=== PATIENT | male | born 1975 ===

== ENCOUNTER 2018-12-21 14:14 | Emergency (ER) | payer OTHER ==
[2018-12-21 15:05] VITALS: BMI 27.4
[2018-12-21 15:07] VITALS: RESP 18; TEMP 98.1
[2018-12-21] MEDS ORDERED: Lidocaine 1% Inj (20ml) IJ STA (15:51)
[2018-12-21] MEDS ORDERED: Tmp-Smz 800 mg-160 mg DS Tab PO STA (15:51)
--- NOTE | 2018-12-21 15:55 | ED PDOC ---
Arrival/HPI - General Chief Complaint: Abnormal Skin Integrity Time Seen by Provider: 12/21/18 15:36 Historian: Patient - History of Present Illness Narrative History of Present Illness (Text): 12/21/18 15:52 42 y/o male, no significant pmh, nkda, c/o rt. anterior thigh lump with pain x 1 week. Pt. stated that it was a small lesion, been growing and pain, no fever or chills, no night sweat, no numbness or tingling, no other medical or psychological complaints. Past Medical History - Provider Review Nursing Documentation Reviewed: Yes - Infectious Disease Hx of Infectious Diseases: None - Psychiatric Hx Substance Use: No Family/Social History - Physician Review Nursing Documentation Reviewed: Yes Family/Social History: Unknown Family HX Smoking Status: Never Smoked Hx Alcohol Use: No Hx Substance Use: No Allergies/Home Meds Allergies/Adverse Reactions: Allergies No Known Allergies Allergy (Verified 12/21/18 15:05) Review of Systems - Review of Systems Constitutional: absent: Fatigue, Fevers Eyes: absent: Vision Changes Respiratory: absent: SOB, Cough Cardiovascular: absent: Chest Pain Gastrointestinal: absent: Abdominal Pain, Diarrhea, Nausea, Vomiting Skin: Abscess, Cellulitis. absent: Rash, Pruritis, Skin Lesions, Ulcer Neurological: absent: Headache Psychiatric: absent: Anxiety, Depression Physical Exam Vital Signs Reviewed: Yes Vital Signs Temp Pulse Resp BP Pulse Ox 12/21/18 15:06 98.1 F 100 H 18 134/87 97 Temperature: Afebrile Blood Pressure: Normal Respiratory Rate: Normal Appearance: Positive for: Well-Appearing, Non-Toxic, Comfortable Pain Distress: Mild Mental Status: Positive for: Alert and Oriented X 3 - Systems Exam Head: Present: Atraumatic, Normocephalic Pupils: Present: PERRL Extroacular Muscles: Present: EOMI Conjunctiva: Present: Normal Mouth: Present: Moist Mucous Membranes Neck: Present: Normal Range of Motion Respiratory/Chest: Present: Clear to Auscultation, Good Air Exchange. No: Respiratory Distress, Accessory Muscle Use Cardiovascular: Present: Regular Rate and Rhythm, Normal S1, S2. No: Murmurs Abdomen: No: Tenderness, Distention, Peritoneal Signs Back: Present: Normal Inspection Upper Extremity: Present: Normal Inspection. No: Cyanosis, Edema Lower Extremity: Present: Normal Inspection, Other (Rt. anterior thigh: visible approx. 3cm diameter cellulitis with mild fluctuancy in the middle, no streaking, FROM without limitation, sensation intact, motor 5/5, +DPPT pulses, capillary refill< 2 seconds, neurovascular intact. ). No: Edema Neurological: Present: GCS=15, CN II-XII Intact, Speech Normal Skin: Present: Warm, Dry, Normal Color. No: Rashes Psychiatric: Present: Alert, Oriented x 3, Normal Insight, Normal Concentration Medical Decision Making ED Course and Treatment: 12/21/18 15:54 -keflex/bactrim -will I&D Procedure: Incision & Drainage Performed by the emergency provider Indication: Abscess Location: Rt. anterior thigh Preparation: The area was prepped and draped in the usual sterile fashion and was cleansed with normal saline 1000cc and clean with betadine. Local infiltration of Lidocaine 1% 1cc was used for anesthesia. Procedure: The most fluctuant portion of the abscess was incised with a #11 scalpel. Approximately 0.75cc ml of purulant was obtained. The abscess with no room for packing. A dressing was applied by me. Post-procedure: On exam the abscess is notably less fluctant. The patient tolerated the procedure well, and there were no complication. 12/21/18 16:18 -Discharge home with keflex, bactrim ds, motrin, keep the dressing dry and clean, return to the ER in 2 days for wound check and packing change, follow up with your own pmd and general surgeon within 3 days, return to the ER for any new or worsening signs or symptoms. - PA / [employer] / Resident Statement MD/DO has reviewed & agrees with the documentation as recorded. Disposition/Present on Arrival - Present on Arrival Any Indicators Present on Arrival: No History of DVT/PE: No History of Uncontrolled Diabetes: No Urinary Catheter: No History of Decub. Ulcer: No History Surgical Site Infection Following: None - Disposition Have Diagnosis and Disposition been Completed?: Yes Diagnosis: Thigh abscess Disposition: HOME/ ROUTINE Disposition Time: 16:20 Patient Plan: Discharge Condition: IMPROVED Additional Instructions: -Discharge home with keflex, bactrim ds, motrin, keep the dressing dry and clean, return to the ER in 2 days for wound check and packing change, follow up with your own pmd and general surgeon within 3 days, return to the ER for any new or worsening signs or symptoms. Prescriptions: Cephalexin [cephalexin] 500 mg PO QID #40 cap Ibuprofen [Motrin Tab] 600 mg PO QID PRN #30 tab PRN Reason: Other Sulfamethoxazole/Trimethoprim [Bactrim Ds Tablet] 1 each PO BID #20 tablet Referrals: PCP,NO [Primary Care Provider] - Follow up with primary Eliecer Anne MD [Medical Doctor] - Follow up with primary [facility] [place] [Outside] - Follow up with primary Forms: [employer] (Vietnamese), WORK NOTE
[2018-12-21] MEDS ORDERED: Lidocaine 1% 5ml Abboject ONE (16:01)
[2018-12-21 16:29] VITALS: BP 126/70; PULSE 88; O2SAT 99
== END 2018-12-21 16:29 | disposition home or self-care (01) ==
LOC: ED 14:14
DX: L02.415 Cutaneous abscess of right lower limb (principal)

== ENCOUNTER 2018-12-23 19:05 | Emergency (ER) | payer OTHER ==
[2018-12-23 19:25] VITALS: BMI 27.6
[2018-12-23 19:29] VITALS: RESP 18; TEMP 98.3; O2SAT 98
--- NOTE | 2018-12-23 20:18 | ED PDOC ---
Arrival/HPI - General Chief Complaint: Abnormal Skin Integrity Time Seen by Provider: 12/23/18 19:28 Historian: Patient - History of Present Illness Narrative History of Present Illness (Text): 12/23/18 20:15 42yo male with no pmhx who present to ED for wound check s/p incision and drainage that was done here 3days ago. States he is currently on antibiotic. came to ED because he was advised to return for ere evaluation. He otherwise denies fever, chills, any other complaint. Past Medical History - Provider Review Nursing Documentation Reviewed: Yes - Infectious Disease Hx of Infectious Diseases: None - Psychiatric Hx Substance Use: No - Anesthesia Hx Anesthesia: No Hx Anesthesia Reactions: No Hx Malignant Hyperthermia: No Family/Social History - Physician Review Nursing Documentation Reviewed: Yes Family/Social History: Unknown Family HX Smoking Status: Never Smoked Hx Alcohol Use: No Hx Substance Use: No Allergies/Home Meds Allergies/Adverse Reactions: Allergies No Known Allergies Allergy (Verified 12/21/18 15:05) Review of Systems - Physician Review All systems were reviewed & negative as marked: Yes - Review of Systems Constitutional: Normal Eyes: Normal ENT: Normal Respiratory: Normal Cardiovascular: Normal Gastrointestinal: Normal Genitourinary Male: Normal Musculoskeletal: Normal Skin: Other (Wound check) Neurological: Normal Endocrine: Normal Hemo/Lymphatic: Normal Psychiatric: Normal Physical Exam Vital Signs Reviewed: Yes Vital Signs Temp Pulse Resp BP Pulse Ox 12/23/18 19:29 98.3 F 85 18 126/78 98 Temperature: Afebrile Blood Pressure: Normal Pulse: Regular Respiratory Rate: Normal Appearance: Positive for: Well-Appearing, Non-Toxic, Comfortable Pain Distress: None Mental Status: Positive for: Alert and Oriented X 3 - Systems Exam Head: Present: Atraumatic, Normocephalic Pupils: Present: PERRL Extroacular Muscles: Present: EOMI Conjunctiva: Present: Normal Mouth: Present: Moist Mucous Membranes Neck: Present: Normal Range of Motion Respiratory/Chest: Present: Clear to Auscultation, Good Air Exchange. No: Respiratory Distress, Accessory Muscle Use Cardiovascular: Present: Regular Rate and Rhythm, Normal S1, S2. No: Murmurs Abdomen: No: Tenderness, Distention, Peritoneal Signs Back: Present: Normal Inspection Upper Extremity: Present: Normal Inspection. No: Cyanosis, Edema Lower Extremity: Present: Normal Inspection. No: Edema Neurological: Present: GCS=15, CN II-XII Intact, Speech Normal Skin: Present: Warm, Dry, Normal Color, Other (Wound noted to right distal anterior thigh. Very mild induration noted to the area. No drainage. No erythema. No warmth. No crepitus.). No: Rashes Psychiatric: Present: Alert, Oriented x 3, Normal Insight, Normal Concentration Medical Decision Making ED Course and Treatment: 12/24/18 01:18 wound dressing was changed. Pt advised to apply warm compress to area and continue with the abx he was given./ Referred to surgeon. Advised to return to ED for any new or worsening symptoms. Disposition/Present on Arrival - Present on Arrival Any Indicators Present on Arrival: No History of DVT/PE: No History of Uncontrolled Diabetes: No Urinary Catheter: No History of Decub. Ulcer: No History Surgical Site Infection Following: None - Disposition Have Diagnosis and Disposition been Completed?: Yes Diagnosis: Wound check, abscess Disposition: HOME/ ROUTINE Disposition Time: 20:20 Patient Plan: Discharge Condition: STABLE Additional Instructions: Keep area clean and dry Continue with your medication Follow up with a surgeon Return to ED for any new symptoms Referrals: PCP,NO [Primary Care Provider] - Follow up with primary Renee Mukherjee MD [Staff Provider] - Follow up with primary Forms: [employer] (Green[place]ic)
[2018-12-23 20:49] VITALS: BP 122/71; PULSE 79
== END 2018-12-23 20:50 | disposition home or self-care (01) ==
LOC: ED 19:05
DX: Z48.817 Encounter for surgical aftercare following surgery on the skin and subcutaneous tissue (principal)